=== PATIENT | female | born 1995 | race Caucasian/White ===

== ENCOUNTER 2016-09-20 14:31 | Emergency (ER) | payer SELFPAY ==
[~2016-09-20] VITALS: Ht 162.6 cm; Wt 109.4 kg
[2016-09-20 14:43] VITALS: BP 142/84
[2016-09-20 15:21] LABS: PATH.CAST-FLAG NOT PRESENT; SPERM-FLAG NOT PRESENT; SRC-FLAG NOT PRESENT; XTAL-FLAG NOT PRESENT; YLC-FLAG NOT PRESENT
[2016-09-20 15:36] LABS: BLOOD UREA NITROGEN 7 mg/dL (7-18)
[2016-09-20] MEDS ORDERED: CEFDINIR 300 MG CAPSULE PO ONE (16:30)
[2016-09-21] MEDS ORDERED: PREN-3 PO (21:52)
== END 2016-09-20 16:51 | disposition home or self-care (01) ==
LOC: ED 16:45
DX: O20.0 Threatened abortion (principal); O23.11 Infections of bladder in pregnancy, first trimester; Z3A.01 Less than 8 weeks gestation of pregnancy
CPT/HCPCS: 36415; 76801; 80048; 81001; 82040; 84702; 85025; 86901; 87077; 87086; 99285

== ENCOUNTER 2016-09-21 20:07 | Emergency (ER) | payer SELFPAY ==
[~2016-09-21] VITALS: Ht 162.6 cm; Wt 108.9 kg
[2016-09-21] MEDS ORDERED: PREN-3 PO (21:52)
[2016-09-21] MEDS ORDERED: ONDANSETRON ODT 8 MG PO ONE (22:30)
[2016-09-21] MEDS ORDERED: HYDROcodone/APAP 5/325 TABLET PO ONE (22:30)
[2016-09-21] MEDS ORDERED: ONDANSETRON ODT 8 MG ONE (22:33)
[2016-09-21] MEDS ORDERED: HYDROcodone/APAP 5/325 TABLET ONE (22:33)
[2016-09-21 22:40] VITALS: BP 140/88
== END 2016-09-21 22:42 | disposition home or self-care (01) ==
LOC: ED 22:36
DX: O03.4 Incomplete spontaneous abortion without complication (principal); O23.41 Unspecified infection of urinary tract in pregnancy, first trimester; Z3A.01 Less than 8 weeks gestation of pregnancy
CPT/HCPCS: 36415; 84702; 85025; 99284; Q0162